=== PATIENT | female | born 1995 | race Caucasian/White ===

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

== ENCOUNTER 2017-07-19 15:08 | Emergency (ER) | payer OTHER ==
[~2017-07-19] VITALS: Ht 165.1 cm; Wt 95.0 kg
[~2017-07-19 15:08] MED LIST: CELE20TA PO; IBUP1TAB7 PO; ROBA750T PO
[2017-07-19 15:18] VITALS: BP 138/85; PULSE 80; RESP 18; TEMP 98.9; O2SAT 98
[2017-07-19 15:33] VITALS: BP 115/65; PULSE 75; RESP 15; TEMP 98.1; O2SAT 100
--- NOTE | 2017-07-19 15:55 | PD ---
HPI Chief Complaint: Medication Refill Request Time Seen by Provider: 15:46 Travel History International Travel<30 days: No Contact w/Intl Traveler<30days: No Traveled to known affect area: No History of Present Illness HPI 22-year-old female came to the emergency room with her parents with history of anxiety related to extreme stress and burden at work. 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 She has history of anxiety and since she has started working there trying to handle phone calls and volume of work she has been getting more and more stressed and overwhelmed. She is to be on 10 mg of Celexa which initially was working but then it stopped working. Her catch basin cleaner increase the dose to 40 mg but it has not helped. She has been missing work frequently because of this. She is concerned that she will lose her job. She has been looking to find a [facility] outpatient but has been unsuccessful and eventually ended up in the emergency room. She has no suicidal ideations. Vital signs are stable. [facility] Past Medical History Narrative Medical List of her past medical, surgical, social and family history is reviewed from the nursing note. Anxiety: Yes Depression: Yes Cancer: No Cardiovascular Problems: No Developmental Delay: No Diabetes: No Diminished Hearing: No Gastrointestinal Disorders: No Headaches: Yes Neurologic: Yes Psychiatric: Yes Respiratory: No Immunizations Current: Yes Migraines: Yes Seizures: No Thyroid Disease: No Ulcer: No Tetanus Vaccination: > 5 Years ?: Not Past Surgical History Abdominal Surgery: No Cardiac Surgery: No Ear Surgery: No Endocrine Surgery: No Eye Surgery: No Genitourinary Surgery: No Gynecologic Surgery: No Neurologic Surgery: No Oral Surgery: No Thoracic Surgery: Yes (Breast Reduction) Other Surgery: Yes (Breast Reduction) Social History Alcohol Use: Yes (occ) Tobacco Use: Yes (1-2 per day) Substance Use: No Allergies-Medications (Allergen,Severity, Reaction): Coded Allergies: No Known Allergies (Verified Adverse Reaction, Unknown, 07/19/17) Comments No known drug allergies. Reported Meds & Prescriptions Reported Meds & Active Scripts Active Klonopin (Clonazepam) 0.5 Mg Tab 0.5 Mg PO BID Reported Celexa (Citalopram Hydrobromide) 20 Mg Tab 20 Mg PO DAILY Narrative Medication List of her home medications reviewed from the nursing Review of Systems Except as stated in HPI: all other systems reviewed are Neg Psychiatric: Positive: Anxiety Physical Exam Narrative GENERAL: Awake, alert, anxious, no obvious distress SKIN: Focused skin assessment warm/dry. HEAD: Atraumatic. Normocephalic. EYES: Pupils equal and round. No scleral icterus. No injection or drainage. ENT: No nasal bleeding or discharge. Mucous membranes pink and moist. NECK: Trachea midline. No JVD. CARDIOVASCULAR: Regular rate and rhythm. No murmur appreciated. RESPIRATORY: No accessory muscle use. Clear to auscultation. Breath sounds equal bilaterally. GASTROINTESTINAL: Abdomen soft, non-tender, nondistended. Hepatic and splenic margins not palpable. MUSCULOSKELETAL: No obvious deformities. No clubbing. No cyanosis. No edema. NEUROLOGICAL: Awake and alert. No obvious cranial nerve deficits. Motor grossly within normal limits. Normal speech. PSYCHIATRIC: Appropriate mood and affect; insight and judgment normal. Data Data Last Documented VS Vital Signs Date Time Temp Pulse Resp B/P (MAP) Pulse Ox O2 Delivery O2 Flow Rate FiO2 07/19/17 17:20 07/19/17 15:33 85 15 07/19/17 15:33 98.1 100 Room Air Orders Orders Psych Screen (07/19/17 15:58) Ed Discharge Order (07/19/17 16:54) MDM Medical Decision Making Medical Screen Exam Complete: Yes Emergency Medical Condition: Yes Medical Record Reviewed: Yes Differential Diagnosis Anxiety, adjustment disorder Narrative Course 4:50 PM patient is medically cleared and I have asked the psych nurse practitioner to come and see the patient and see if any medication can be started. Currently the psych nurse practitioner is interviewing the patient. 4:59 PM patient was just assessed by the psych nurse practitioner. Please refer to her note. As per her patient is okay to go home and could be given a prescription of Klonopin as needed. Patient has an appointment with psychiatrist within next week. Procedures EKG Prior to Arrival: No Diagnosis Primary Impression: Anxiety Additional Instructions: Follow-up with the appointment to have a near future outpatient. Take the medication only if needed as per the prescription direction. Return to the ER if condition worsens or any other new concerns. Med/Other Pt SpecificInfo: Prescription(s) given Scripts Clonazepam (Klonopin) 0.5 Mg Tab 0.5 MG PO BID, #6 TAB 0 Refills Prov: Reyes,Shravanti R. MD 07/19/17 Disposition: 01 DISCHARGE HOME Condition: Stable Shaye Chambers MD July 19, 2017 15:55
[2017-07-19] MEDS ORDERED: CLON.5 PO (16:59)
--- NOTE | 2017-07-19 17:03 | PD ---
History of Present Illness Chief Complaint: Medication Refill Request Time Seen by Provider: 16:25 Travel History International Travel<30 Days: No Contact w/Intl Traveler<30days: No Known affected area: No Legal Status Legal Status: Voluntary History of Present Illness: History of Present Illness HPI 22-year-old, single, female, with reported history of major depressive disorder who presents to the emergency room accompanied by parents, on a voluntary status with complaints of anxiety related to extreme stress and burden at work. Patient reports that she has been treated with Celexa for the last 2 years with 3 7 increase to 40 mg within the past 4 weeks. Since increase in the medication she has been reporting increase in symptoms of anxiety as well as difficulty with sleep. She reports that she has had to call off from work secondary to her increase in anxiety, poor coping and peer sleep. She has tried to get in to see a psychiatrist since her associate professor of musicology will no longer be prescribing her medication for her but has been unsuccessful in doing so. She has been taking supplements from the [email or web address] store including lithium orotate 5 mg but this has been ineffective. She sees a therapist twice a month but has been unable to see her this past month due to her work schedule. EMR is reviewed the patient has 1 previous psychiatric hospitalization in 2013 after an intentional overdose. She was diagnosed with major depressive disorder. Patient is seen. CARIDAD Montenegro is present. Patient's mother is present and she gives permission for the mother to remain at bedside. The patient is alert, oriented, anxious. Her speech is clear and of normal rate and tone. Her thoughts are clear, organized and logical. There is no evidence of any hallucinations, no delusions and no paranoia. No tran. Mood is anxious. The patient denies any suicidal or homicidal ideation, intent or plan. Sleep is reported as impaired with difficulty falling asleep. Decreased appetite. Patient reports a history of having mood swings occurring every to 2-3 months. At times she spends a lot of money has increased energy and cleans a lot and organizes her home. At other times she feels sad, stays in bed, has decreased appetite, anhedonia. Remainder of psychiatric review of system is negative. PFSH Past Medical History Anxiety: Yes Depression: Yes Cancer: No Cardiovascular Problems: No Developmental Delay: No Diabetes: No Diminished Hearing: No Gastrointestinal Disorders: No Headaches: Yes Neurologic: Yes Psychiatric: Yes Respiratory: No Immunizations Current: Yes Migraines: Yes Seizures: No Thyroid Disease: No Ulcer: No Tetanus Vaccination: > 5 Years ?: Not Past Surgical History Abdominal Surgery: No Cardiac Surgery: No Ear Surgery: No Endocrine Surgery: No Eye Surgery: No Genitourinary Surgery: No Gynecologic Surgery: No Neurologic Surgery: No Oral Surgery: No Thoracic Surgery: Yes (Breast Reduction) Other Surgery: Yes (Breast Reduction) Psychiatric History Psychiatric History Hx Psychiatric Treatment: 1 previous psychiatric admission in 2013 after an overdose. Sees a therapist twice a month. Has been on Celexa for over 2 years and recently was increased. No history of self-injurious behavior History of Inpatient Treatment: Yes ([facility] 2013) Guns or firearms in home: Yes (Her roommate is a harbor police launch commander and has weapons.) Social History Hx Alcohol Use: Yes (occ) Hx Tobacco Use: Yes (1-2 per day) Hx Substance Use: No Hx of Substance Use Treatment: No Family Psychiatric History Maternal grandmother with bipolar disorder and completed suicide by shooting herself. Maternal aunt overdose. Allergies-Medications (Allergen,Severity, Reaction): Coded Allergies: No Known Allergies (Verified Adverse Reaction, Unknown, 07/19/17) Reported Meds & Prescriptions Reported Meds & Active Scripts Active Klonopin (Clonazepam) 0.5 Mg Tab 0.5 Mg PO BID Reported Celexa (Citalopram Hydrobromide) 20 Mg Tab 20 Mg PO DAILY Review of Systems Psychiatric: COMPLAINS OF: Anxiety, Mood changes Mental Status Examination Appearance: Appropriate Consciousness: Alert Orientation: x4 Motor Activity: Normal gait Speech: Unremarkable Language: Adequate Fund of Knowledge: Adequate Attention and Concentration: Adequate Memory: Unremarkable Mood: Appropriate, Anxious Affect: Appropriate Thought Process & Associations: Intact, Logical, Goal directed Thought Content: Appropriate Hallucination Type: None Delusion Type: None Suicidal Ideation: No Suicidal Plan: No Suicidal Intention: No Homicidal Ideation: No Homicidal Plan: No Homicidal Intention: No Insight: Adequate Judgment: Adequate MDM Medical Decision Making Medical Record Reviewed: Yes Assessment/Plan History of Present Illness HPI 22-year-old, single, female, with reported history of major depressive disorder who presents to the emergency room accompanied by parents, on a voluntary status with complaints of anxiety related to extreme stress and burden at work. Patient reports that she has been treated with Celexa for the last 2 years with 3 7 increase to 40 mg within the past 4 weeks. Since increase in the medication she has been reporting increase in symptoms of anxiety as well as difficulty with sleep. The patient presents no suicidal or homicidal ideation, intent or plan. There is no evidence of any tran. The patient has adequate family support. Psychoeducation is provided. Sleep hygiene has been discussed. I have recommended decrease in Celexa to 20 mg po q day. Discontinue [id number] supplements. I have discussed case with Dr. Rodgers adding Klonopin 0.5 mg po BID until patient can be seen by outpatient psychiatry. I have advised the patient and the mother to contact her associate professor of musicology who has been prescribing the Celexa and inform her of visit to the ED and to follow up with associate professor of musicology that she will be able to be seen by outpatient psychiatry. Orders Orders Psych Screen (07/19/17 15:58) Ed Discharge Order (07/19/17 16:54) Results Vital Signs Date Time Temp Pulse Resp B/P (MAP) Pulse Ox O2 Delivery O2 Flow Rate FiO2 07/19/17 15:33 85 15 07/19/17 15:33 98.1 75 15 115/65 (82) 100 Room Air 07/19/17 15:18 98.9 80 18 138/85 (102) 98 Diagnosis Primary Impression: Adjustment disorder Psychiatrically Cleared: Yes Med/ Other Pt Specific Info: Prescription(s) given Prescriptions Clonazepam (Klonopin) 0.5 Mg Tab 0.5 MG PO BID, #6 TAB 0 Refills Prov: Shaye Chambers MD 07/19/17 Disposition: 01 DISCHARGE HOME Condition: Stable Problem Qualifiers Primary Impression: Adjustment disorder Qualified Codes: F43.23 - Adjustment disorder with mixed anxiety and depressed mood Nadira Patterson July 19, 2017 17:03
== END 2017-07-19 17:35 | disposition home or self-care (01) ==
LOC: NEPD 15:08
DX: F43.23 Adjustment disorder with mixed anxiety and depressed mood (principal)
CPT/HCPCS: 99283